=== PATIENT | male | born 1995 | race Caucasian/White ===

== ENCOUNTER → 2019-12-29 16:49 | Outpatient (BNVA) | payer BC, SELFPAY | PROVIDERS: Family Provider Nurse Practitioner; PCP Nurse Practitioner; Visit Provider Nurse Practitioner | DX: R10.813 Right lower quadrant abdominal tenderness (principal); R10.31 Right lower quadrant pain | CPT/HCPCS: 81003; 85025 ==

== ENCOUNTER → 2020-02-05 16:24 | Outpatient (BNVA) | payer BC, SELFPAY | PROVIDERS: Family Provider Nurse Practitioner; PCP Nurse Practitioner; Visit Provider Nurse Practitioner | DX: E10.9 Type 1 diabetes mellitus without complications (principal); F41.1 Generalized anxiety disorder | CPT/HCPCS: 81000 ==

== ENCOUNTER → 2020-07-01 15:58 | Outpatient (BNVA) | payer OTHER, SELFPAY | PROVIDERS: Family Provider Nurse Practitioner; PCP Nurse Practitioner; Visit Provider Nurse Practitioner Family | DX: Z11.59 Encounter for screening for other viral diseases (principal) | CPT/HCPCS: 87635 ==

== ENCOUNTER → 2021-05-23 09:46 | Outpatient (BNVA) | payer SELFPAY | PROVIDERS: Family Provider Nurse Practitioner; PCP Nurse Practitioner; Visit Provider Nurse Practitioner | DX: E10.65 Type 1 diabetes mellitus with hyperglycemia (principal); F41.9 Anxiety disorder, unspecified; F32.9 Major depressive disorder, single episode, unspecified | CPT/HCPCS: 80053; 83036 ==

== ENCOUNTER → 2021-12-09 10:25 | Outpatient (BNVA) | payer SELFPAY | PROVIDERS: Family Provider Nurse Practitioner; PCP Nurse Practitioner; Visit Provider Nurse Practitioner | DX: E10.65 Type 1 diabetes mellitus with hyperglycemia (principal); F41.9 Anxiety disorder, unspecified; F32.9 Major depressive disorder, single episode, unspecified; E10.9 Type 1 diabetes mellitus without complications | CPT/HCPCS: 80053; 80061; 81000; 82043; 83036 ==

== ENCOUNTER → 2022-04-13 10:11 | Outpatient (BNVA) | payer SELFPAY | PROVIDERS: Family Provider Nurse Practitioner; PCP Nurse Practitioner; Visit Provider Nurse Practitioner | DX: F41.9 Anxiety disorder, unspecified (principal); F32.9 Major depressive disorder, single episode, unspecified; E10.65 Type 1 diabetes mellitus with hyperglycemia | CPT/HCPCS: 80053; 83036 ==

== ENCOUNTER → 2022-09-22 11:21 | Outpatient (BNVA) | payer SELFPAY | PROVIDERS: Family Provider Nurse Practitioner; PCP Nurse Practitioner; Visit Provider Nurse Practitioner | DX: E10.65 Type 1 diabetes mellitus with hyperglycemia (principal); F41.9 Anxiety disorder, unspecified; F32.9 Major depressive disorder, single episode, unspecified | CPT/HCPCS: 80053; 80061; 81000; 83036 ==

== ENCOUNTER → 2023-04-09 16:18 | Outpatient (BNVA) | payer SELFPAY | PROVIDERS: Family Provider Nurse Practitioner; PCP Nurse Practitioner; Visit Provider Nurse Practitioner | DX: E10.9 Type 1 diabetes mellitus without complications (principal) | CPT/HCPCS: 80053; 80061; 81000; 82043; 83036 ==

== ENCOUNTER → 2023-08-15 08:43 | Outpatient (BNVA) | payer SELFPAY | PROVIDERS: Family Provider Nurse Practitioner; PCP Nurse Practitioner; Visit Provider Nurse Practitioner | DX: E10.9 Type 1 diabetes mellitus without complications (principal); E55.9 Vitamin D deficiency, unspecified | CPT/HCPCS: 80053; 80074; 82306; 83036 ==

== ENCOUNTER → 2023-11-07 08:40 | Outpatient (BNVA) | payer SELFPAY | PROVIDERS: Family Provider Nurse Practitioner; PCP Nurse Practitioner; Visit Provider Nurse Practitioner | DX: E10.65 Type 1 diabetes mellitus with hyperglycemia (principal); R53.83 Other fatigue | CPT/HCPCS: 80053; 80061; 82043; 83036; 84403 ==

== ENCOUNTER → 2024-04-22 10:41 | Outpatient (BNVA) | payer SELFPAY | PROVIDERS: Family Provider Nurse Practitioner; PCP Nurse Practitioner; Visit Provider Nurse Practitioner | DX: E11.9 Type 2 diabetes mellitus without complications (principal) | CPT/HCPCS: 80053; 80061; 83036 ==

== ENCOUNTER → 2024-07-17 17:19 | Outpatient (BNVA) | payer OTHER, SELFPAY | PROVIDERS: Family Provider Nurse Practitioner; PCP Nurse Practitioner; Visit Provider Nurse Practitioner | DX: E55.9 Vitamin D deficiency, unspecified (principal); E11.9 Type 2 diabetes mellitus without complications | CPT/HCPCS: 80053; 82306; 83036 ==

== ENCOUNTER → 2024-10-02 16:32 | Outpatient (BNVA) | payer OTHER, SELFPAY | PROVIDERS: Family Provider Nurse Practitioner; PCP Nurse Practitioner; Visit Provider Nurse Practitioner | DX: E10.65 Type 1 diabetes mellitus with hyperglycemia (principal) | CPT/HCPCS: 80053; 80061; 83036 ==

== ENCOUNTER → 2025-01-06 16:09 | Outpatient (BNVA) | payer OTHER, SELFPAY | PROVIDERS: Family Provider Nurse Practitioner; PCP Nurse Practitioner; Visit Provider Nurse Practitioner | DX: E10.65 Type 1 diabetes mellitus with hyperglycemia (principal); L30.9 Dermatitis, unspecified | CPT/HCPCS: 80053; 83036 ==

== ENCOUNTER 2025-01-25 01:17 | Emergency (ER) | payer OTHER, SELFPAY ==
[2025-01-25 01:27] VITALS: BP 111/72; PULSE 113; RESP 16; TEMP 37.3; O2SAT 97; BMI 28.1
[2025-01-25 02:43] LABS: Basophils % 0.3 %; Eosinophils # 0.2 10^3/uL (0.0-0.8); Eosinophils % 4.1 %; Hematocrit 34.4 % (37-53); Lymphocytes # 0.3 10^3/uL (0.8-4.8); Lymphocytes % 7.4 %; Mean Corpuscular Volume 91.2 fl (82-101); Monocytes # 0.1 10^3/uL (0.2-0.9); Monocytes % 2.8 %; Neutrophils # 3.06 10^3/uL (1.8-7.7); Neutrophils % 84.3 %; Nucleated Red Blood Cells % 0 %; Platelet Count 167 10^3/cmm (157-399); Red Blood Count 3.77 10^6/uL (3.85-5.65); Red Cell Distribution Width 12.2 % (12.1-15.1); White Blood Count 3.63 10^3/uL (3.29-11.43)
[2025-01-25 02:53] LABS: INR 1.04 (0.8-1.2)
[2025-01-25 02:54] LABS: Partial Thromboplastin Time 31.5 SECONDS (23.9-36.7)
[2025-01-25 02:57] LABS: Lactic Sepsis W/Reflex 1.3 mmol/L (0.5-2.2)
[2025-01-25 02:58] LABS: Alanine Aminotransferase 138 U/L (0-41); Albumin Level 3.4 g/dL (3.5-5.2); Alkaline Phosphatase 70 U/L (40-130); Anion Gap 14.8 (5-19); Aspartate Amino Transferase 152 U/L (0-40); Blood Urea Nitrogen 19 mg/dL (6-20); C Reactive Protein 116.9 mg/L (0.0-4.9); Calcium 7.8 mg/dL (8.5-10.5); Carbon Dioxide 23 mmol/L (22-29); Chloride 92 mmol/L (98-107); Globulin 2.5 g/dL (1.3-4.6); Glomerular Filtration Rate 72.6 mL/min (90-130); Glucose 222 mg/dL (65-115); Osmolality Calculated 271 mOsm/kg (285-295); Potassium 3.8 mmol/L (3.5-5.1); Sodium 126 mmol/L (136-145); Total Bilirubin 0.5 mg/dL (0.15-1.2); Total Protein 5.9 g/dL (6.6-8.7)
--- NOTE | 2025-01-25 03:08 | W.ED.SKABFB ---
HPI - Skin/Abscess/Foreign Bdy General: Chief complaint: Skin/Abscess/Foreign Body Stated complaint: rash/ reaction left leg. fever. tooth pain right Time Seen by Provider: 01/25/25 02:08 History of Present Illness: 29-year-old male who had a tibial tiffanie placed in his left leg after a fracture in [facility] on 01/09. He began to get a rash around his ankle incision, and was placed on Bactrim 4 days ago. He has been taking his antibiotics. Since that time, he has developed a petechial rash on both lower extremities, on his trunk as well. He has been having fevers, as high as 103 at home last night. No other significant symptoms, except that he has had right upper jaw pain around his teeth for the past couple of days. Related Data Home Medications ?Medication ?Instructions ?Recorded ?Confirmed pen needle, diabetic 32 gauge x #50 ea 12/02/19 01/06/2510/25 (Comfort EZ Pen Stewart) Previous Rx's ?Medication ?Instructions ?Recorded blood-glucose sensor (Dexcom G7 #12 ea 10/02/24 Sensor device) insulin aspart U-100 100 unit/mL 2 - 40 unit (0.02 - 0.4 mL) SUBCUT 01/06/25 (3 mL) subcutaneous pen (Novolog TID #15 mL FlexPen U-100 Insulin aspart) insulin glargine 100 unit/mL (3 See Rx Instructions SUBCUT QAM #30 01/06/25 mL) subcutaneous pen (Lantus mL Solostar U-100 Insulin) rosuvastatin 5 mg tablet (Crestor) 5 mg PO DAILY #30 tabs 01/06/25 triamcinolone acetonide 0.1 % 1 applic topical DAILY #30 grams 01/06/25 topical ointment clindamycin HCl 300 mg capsule 300 mg PO Q8H 10 days #30 caps 01/25/25 doxycycline hyclate 100 mg tablet 100 mg PO BID 14 days #28 tabs 01/25/25 Allergies Allergy/AdvReac Type Severity Reaction Status Date / Time sulfamethoxazole (From Allergy ALGY-Rash Verified 01/25/25 03:33 Bactrim) trimethoprim (From Bactrim) Allergy ALGY-Rash Verified 01/25/25 03:33 PFS ED PFSH: Medical History (Updated 01/25/25 @ 03:38 by Sam Roca DO) Anxiety and depression Type 1 diabetes mellitus Surgical History Hx of tonsillectomy Family History Mother Suicide Father Diabetes Grandfather Diabetes Hypertension Grandmother Diabetes Social History Smoking and tobacco/nicotine status: never used tobacco/nicotine Second hand smoke exposure: No Alcohol intake: former Substance/Drug Use: never Adopted: No Caregiver/support person: No Lives independently: Yes Household members: family Housing: House Marital status: Single Number of children: 0 service: No Current occupational status: employed Current occupation: [employer] Pets and animals: No Do you think of yourself as: Straight/Heterosexual Current gender identity: Male Physical Exam Const: COMMON NORMALS: no acute distress GENERAL APPEARANCE: cooperative; not ill appearing and not frail appearing HENMT: COMMON NORMALS: normocephalic, atraumatic and Normal external nose present HEAD & SCALP: normocephalic and atraumatic FACE & SINUS: normal facial exam and face symmetric NOSE: Normal external nose present Eye: COMMON NORMALS: Equal, round and reactive pupils present and EOMs intact bilaterally PUPIL: Yes Equal, round and reactive pupils present Neck/C-Spine: GENERAL: Yes trachea midline Chest: CHEST: Yes Symmetrical chest wall rise Resp: COMMON NORMALS: normal respiratory effort, No retractions, No use of accessory muscles and clear to auscultation bilaterally AUSCULTATION: clear to auscultation bilaterally Cardio: COMMON NORMALS: regular rate and regular rhythm RATE: regular rate RHYTHM: regular rhythm GI: COMMON NORMALS: Normal to inspection, nondistended, normoactive bowel sounds present Extremity: NARRATIVE EXTREMITY EXAM: Examination left lower extremity reveals incisions in the proximal and distal tibia, as well as the distal femur. The distal tibia incision, shows some mild swelling with beefy redness. No streaking. There is widespread petechial rash to both lower extremities as well as the trunk. Neuro: ROMERO COMA SCALE: document GCS findings Romero coma scale eye opening: Spontaneous Romero coma scale verbal response: Orientated [place] coma scale motor response: Obey commands [place] coma scale total score: 15 SENSORY EXAM: Yes extremities (intact) Psych: COMMON NORMALS: speech normal SPEECH: Yes normal speech Skin: COMMON NORMALS: no rashes or lesions noted GENERAL SKIN EXAM: no rashes or lesions noted Course Vital Signs: Vital signs: Vital Signs Temperature 99.2 F 01/25/25 01:27 Pulse Rate 113 H 01/25/25 01:27 Respiratory Rate 16 01/25/25 01:27 Blood Pressure 111/72 01/25/25 01:27 Pulse Oximetry 97 01/25/25 01:27 Oxygen Delivery Me thod Room Air 01/25/25 01:27 MDM - Skin/Abscess/Foreign Bdy Medicial Decision Making White blood cell count is 3.6. Lactic acid is 1.3. Platelet count is normal. Coags are normal. Sodium is 126. Sugars 222. CRP is 117. ESR is only 12. Urinalysis is negative. Mild cellulitic rash surrounding tibial incision site distally. Widespread petechial rash. Liver enzymes are mildly elevated, combined with decreased white blood cell count and decreased platelet count. The patient does have a history of known tick bites in the last 2 weeks. Because of this, he will be covered for tick fever with doxycycline. Tick panel is been sent. There is a macular rash present as well, which is likely a drug eruption from Bactrim. This will be stopped in favor of clindamycin. To return for any new or worsening symptoms. He will call his doctor on Sunday. Lab Data 01/25/25 02:32 01/25/25 02:32 Laboratory Results WBC 3.63 10^3/uL (3.29-11.43) 01/25/25 02:32 RBC 3.77 10^6/uL (3.85-5.65) L 01/25/25 02:32 Hgb 11.70 g/dL (11.27-16.99) 01/25/25 02:32 Hct 34.4 % (37-53) L 01/25/25 02:32 MCV 91.2 fl (82-101) 01/25/25 02:32 MCH 31.0 pg (27-33) 01/25/25 02:32 MCHC 34.0 g/dL (30-55) 01/25/25 02:32 RDW 12.2 % (12.1-15.1) 01/25/25 02:32 Plt Count 167 10^3/cmm (157-399) 01/25/25 02:32 MPV 11.0 fL (7.4-10.4) H 01/25/25 02:32 Neut % (Auto) 84.3 % 01/25/25 02:32 Lymph % (Auto) 7.4 % 01/25/25 02:32 [place] % (Auto) 2.8 % 01/25/25 02:32 Eos % (Auto) 4.1 % 01/25/25 02:32 Baso % (Auto) 0.3 % 01/25/25 02:32 Neut # (Auto) 3.06 10^3/uL (1.8-7.7) 01/25/25 02:32 Lymph # (Auto) 0.3 10^3/uL (0.8-4.8) L 01/25/25 02:32 [place] # (Auto) 0.1 10^3/uL (0.2-0.9) L 01/25/25 02:32 Eos # (Auto) 0.2 10^3/uL (0.0-0.8) 01/25/25 02:32 Baso # (Auto) 0.0 10^3/uL (0.0-0.1) 01/25/25 02:32 Nucleated RBC % (auto) 0 % 01/25/25 02:32 Nucleated RBCs # 0.0 /100WBC 01/25/25 02:32 ESR 12 mm/hr (0-10) H 01/25/25 02:32 PT 14.30 SECONDS (12.1-14.9) 01/25/25 02:32 INR 1.04 (0.8-1.2) 01/25/25 02:32 APTT 31.5 SECONDS (23.9-36.7) 01/25/25 02:32 Sodium 126 mmol/L (136-145) L 01/25/25 02:32 Potassium 3.8 mmol/L (3.5-5.1) 01/25/25 02:32 Chloride 92 mmol/L (98-107) L 01/25/25 02:32 Carbon Dioxide 23 mmol/L (22-29) 01/25/25 02:32 Anion Gap 14.8 (5-19) 01/25/25 02:32 BUN 19 mg/dL (6-20) 01/25/25 02:32 Creatinine 1.2 mg/dL (0.7-1.2) 01/25/25 02:32 GFR Calculation 72.6 mL/min (90-130) L 01/25/25 02:32 Glucose 222 mg/dL (65-115) H 01/25/25 02:32 Calculated Osmolality 271 mOsm/kg (285-295) L 01/25/25 02:32 Lactic Acid 1.3 mmol/L (0.5-2.2) 01/25/25 02:32 Calcium 7.8 mg/dL (8.5-10.5) L 01/25/25 02:32 Total Bilirubin 0.5 mg/dL (0.15-1.2) 01/25/25 02:32 AST 152 U/L (0-40) H 01/25/25 02:32 ALT 138 U/L (0-41) H 01/25/25 02:32 Alkaline Phosphatase 70 U/L (40-130) 01/25/25 02:32 C-Reactive Protein 116.9 mg/L (0.0-4.9) H 01/25/25 02:32 Total Protein 5.9 g/dL (6.6-8.7) L 01/25/25 02:32 Albumin 3.4 g/dL (3.5-5.2) L 01/25/25 02:32 Globulin 2.5 g/dL (1.3-4.6) 01/25/25 02:32 Urine Color Dark yellow (Yellow) A 01/25/25 03:04 Urine Appearance Clear (CLEAR) 01/25/25 03:04 Urine pH 6 (5-7) 01/25/25 03:04 Ur Specific [place] 1.010 (1.005-1.030) 01/25/25 03:04 Urine Protein 1+ (Negative) A 01/25/25 03:04 Urine Glucose (UA) Norm (Normal) 01/25/25 03:04 Urine Ketones 1+ (Negative) H 01/25/25 03:04 Urine Blood Trace (Negative) A 01/25/25 03:04 Urine Nitrate Negative (Negative) 01/25/25 03:04 Urine Bilirubin 1+ (Negative) H 01/25/25 03:04 Urine Urobilinogen 1 mg/dL (Negative) H 01/25/25 03:04 Ur Leukocyte Esterase Negative (Negative) 01/25/25 03:04 Urine RBC 0-2 /hpf (0-2) 01/25/25 03:04 Urine WBC 0-5 /hpf (0-5) 01/25/25 03:04 Ur Squamous Epith Cells 0-5 /hpf (0-5) 01/25/25 03:04 Amorphous Sediment Not Reportable 01/25/25 03:04 Urine Bacteria None seen /hpf (NONE) 01/25/25 03:04 Hyaline Casts 6.20 /lpf 01/25/25 03:04 Urine Mucus Trace /hpf 01/25/25 03:04 No radiology studies performed this visit Discharge Plan Discharge Patient Disposition: Home Clinical Impression: Generalized skin eruption due to drugs and medicaments, Fever, Cellulitis of left leg Condition: Stable Prescriptions: New doxycycline hyclate 100 mg tablet 100 mg PO BID 14 Days Qty: 28 0RF clindamycin HCl 300 mg capsule 300 mg PO Q8H 10 Days Qty: 30 0RF No Action (DME) pen needle, diabetic [Comfort EZ Pen Stewart] 32 gauge x 1/4 needle See Rx Instructions .ROUTE .MEDSUPPLY Qty: 50 Rx Instructions: As directed (DME) Dexcom G7 Sensor Device See Rx Instructions .ROUTE .MEDSUPPLY Qty: 12 5RF Rx Instructions: change every 10 days insulin aspart U-100 [Novolog FlexPen U-100 Insulin] 100 unit/mL (3 mL) insulin pen 2 - 40 unit SUBCUT TID Qty: 15 5RF insulin glargine [Lantus Solostar U-100 Insulin] 100 unit/mL (3 mL) insulin pen See Rx Instructions SUBCUT QAM Qty: 30 5RF Rx Instructions: up to 80U subcutaneously every morning; rosuvastatin [Crestor] 5 mg tablet 5 mg PO DAILY Qty: 30 5RF triamcinolone acetonide 0.1 % ointment 1 applic topical DAILY Qty: 30 0RF Discharge Orders: Discharge ED (Routine); Ordered 01/25/25 Ordered By: Sam Roca Referrals: Jeancarlos Marie, [facility] [Primary Care Provider] - 1-3 days Patient Instructions: Cellulitis (ED), General Allergic Reaction (ED), Opioid Safety, Pain Management Activity Restrictions/Additional Instructions: Stop your trimethoprim/sulfamethoxazole. Use the other antibiotics as directed. Monitor your fevers. Return for significant continued fever despite 3-4 doses of antibiotics, worsening redness or rash despite treatment, sloughing of skin, vomiting, any other concerning symptoms. Call your doctor on Sunday to let them know you were seen here, and had had a reaction to the medication. Print Language: Setswana Coding Level of Care Code ED Telegraph Mechanic for Ancelmo Farmer
[2025-01-25 03:11] LABS: Erythrocyte Sedimentation Rate 12 mm/hr (0-10)
[2025-01-25 03:21] LABS: Bacteria Urine None Seen /hpf; RBC Urine 0-2 /hpf (0-2); Squamous Epithelial Cell Urine 0-5 /hpf (0-5); Universal Test for UA Present (0); WBC Urine 0-5 /hpf (0-5)
[2025-01-25 03:29] LABS: Add Urine Culture? No; Add Urine Microscopic? YES; Bilirubin Urine 1+ (Negative); Blood Urine Trace (Negative); Glucose Urine UA Norm (Normal); Ketones Urine 1+ (Negative); Leukocyte Esterase Urine Negative (Negative); Mucus Urine TRACE /hpf; Nitrate Urine Negative (Negative); Protein Urine 1+ (Negative); Urine Appearance Clear (CLEAR); Urine Color Dark Yellow (Yellow); Urobilinogen Urine 1 mg/dL (Negative); pH Urine 6 (5-7)
[2025-01-27 04:10] LABS: Lyme AB Screen <0.90 index
== END 2025-01-25 03:52 | disposition home or self-care (01) ==
PROVIDERS: Emergency Provider Emergency Medicine; PCP Nurse Practitioner
DX: L27.0 Generalized skin eruption due to drugs and medicaments taken internally (principal); R50.9 Fever, unspecified; L03.116 Cellulitis of left lower limb; Z79.4 Long term (current) use of insulin; E10.9 Type 1 diabetes mellitus without complications
CPT/HCPCS: 36415; 80053; 81001; 83605; 85025; 85610; 85651; 85730; 86140; 86618; 86666; 86757; 99283

== ENCOUNTER → 2025-07-28 15:04 | Outpatient (BNVA) | payer OTHER, SELFPAY | PROVIDERS: PCP Nurse Practitioner; Visit Provider Nurse Practitioner | DX: E10.65 Type 1 diabetes mellitus with hyperglycemia (principal) | CPT/HCPCS: 80053; 80061; 82043; 83036 ==